=== PATIENT | male | born 1930 | race African-American/Black ===

== ENCOUNTER → 2017-08-24 | Outpatient (CLI) | payer OTHER, MEDICARE ==
[2017-08-24 10:42] LABS: CREATININE 2.7 mg/dL (0.7-1.3)
[2017-08-24 10:42] LABS: GFR 27.1
== END | disposition home or self-care (01) ==
LOC: MRI 12:33
DX: D32.9 Benign neoplasm of meninges, unspecified (principal); J01.30 Acute sphenoidal sinusitis, unspecified
CPT/HCPCS: 36415; 70551; 82565